=== PATIENT | female | born 1955 | race Caucasian/White ===

== ENCOUNTER 2016-08-28 05:47 | Inpatient (IN) | payer MEDICARE, OTHER ==
[2016-08-28] MEDS ORDERED: Clindamycin 600 mg/D5W 50 ml 600 MG/50 ML IVB IV ONE (06:05)
[2016-08-28] MEDS ORDERED: HYDROmorphone 1 MG INJECTION IV PRN ×2 (06:44)
[2016-08-28] MEDS ORDERED: LABETALOL 20 MG/4 ML SYRINGE IV PRN (06:44)
[2016-08-28] MEDS ORDERED: PROMETHAZINE 25 MG/ML VIAL IV PRN ×2 (06:44)
[2016-08-28] MEDS ORDERED: hydrALAZINE 20 MG/ML VIAL IV PRN (06:44)
[2016-08-28] MEDS ORDERED: ONDANSETRON HCL 4 MG/2 ML VIAL IV PRN ×2 (06:44→07:01)
[2016-08-28] MEDS ORDERED: ONDANSETRON HCL 4 MG ODT TAB PO PRN (06:44)
--- NOTE | 2016-08-28 06:45 | SC.ANESPOS ---
Post-Anesthesia Note LOC: [facility] Post-Anesthesia Assessment: Awake, Returned to Baseline, Hemodynamically Stable , Pain Control Adequate Phase I & II Recovery Complete: Yes Apparent Anesthesia Complication: No : N - Vital Signs Blood Pressure: 111/53 Pulse: 68 Resp Rate: 18 O2 Sat: 93 Temp: 97.5 F
--- NOTE | 2016-08-28 06:53 | HIM.ANES ---
Anesthesia Evaluation & Plan Diagnoses: LOWER ABDOMINAL PAIN, UNSPECIFIED (08/28/16) DISPLACED INTERTROCHANTERIC FRACTURE OF RIGHT FEMUR, INIT (08/28/16) Consented Procedure: right hip gamma nail removal with conversion to hip hemiarthroplasty and other procedures as indicated - Focused Review of Systems Cardiac History: Yes: Hx Hypertension, Hx Heart Attack (X3 in 2003, 2004, and 2010), Hx Cardiac Catheterization (08/15/2016 100% OCCLUSION RCA WITH COLLATERAL CIRCULATION. NORMAL LV), Hx Angioplasty, Hx Coronary Stent (3 stents RCA 2003, 1 STENT 2004, 1 STENT 2010), Hx Cardiac Disorders, Hx Abnormal Cholesterol/Hyperlipidemia HEENT: Yes: Hx Dysphagia (from prior admission), Hx Vision Problem ( PRESCRIPTION GLASSES), Other HEENT Problems Respiratory: Yes: Hx Asthma, Hx Emphysema, Hx Chronic Obstructive Pulmonary Disease (COPD), Hx Sleep Apnea, Hx Snoring, Hx CPAP Dependent, Hx Pneumonia (2015 REQUIRED BIPAP INPATIENT) Gastrointestinal: Yes: Hx Gastroesophageal Reflux Disease (Controlled), Hx Pancreatitis (2007), Hx Hiatal Hernia, Hx Gastrointestinal Disorders, Hx Colonoscopy Neurological/Musculoskeletal: Yes: Hx Migraine, Hx Back Pain, Hx Peripheral Neuropathy, Hx Neurological Disorders Other Neurological Problems: 2011 HEAD MRI SHOWED MILD CHRONIC MICROVASCULAR ISCHEMIC CHANGE Psychological: Yes Hx Anxiety, Yes Hx Depression, Yes Hx Mental/Emotional Disorders HX Other Psyco/Soc Problems: DEPRESSION, ANXIETY Endocrine: Yes: Hx Insulin Dependent Diabetes (UNCONTROLLED/FS 239 this AM), Hx Hypothyroidism Blood/Autoimmune: No: Hx AIDS, Hx Hepatitis (type) Smoking Status: Heavy tobacco smoker (5 or more cigarettes/day or daily pipe/ cigar) Past Social History: Denies: Substance Use Disorder Hx Stress Test (date): Yes (07/2016 ABNORMAL REQUIRED HEART CATHERIZATION) Hx Chest Xray (date): Yes (08/15/2016 CHRONIC INTERSTITUAL COARSENING) Surgical History: Yes: Cholecystectomy (1980), Back (LUMBAR LAMINECTIOMY), Hip, Other (R+L Carpal tunnel. ulnar nerve bilat. Laminectomy 1994 L4-5.) Other Surgical History: bare-metal stent to the LAD in 2004, drug-eluting to RCA 2003 BTL 1980 CARPEL TUNNEL RELEASE - Focused Physical Exam NPO since: 08/27/161999 Mallampati: Class IV Thyromental Distance: Greater than 3 Neck: Full Range of Motion Dental: Removable Dental Work Cardiovascular/Chest: Normal Respiratory: Decreased breath sounds Any problems with anesthesia, including nausea and vomiting?: No Any relatives with a history of Malignant Hyperthermia?: No Beta Filipe given (if appropriate): Yes Does the patient have a history of Motion Sickness-: No Other: Problem List Problem Status Onset Accidental fall Acute Acute respiratory failure with hypoxia Acute COPD exacerbation Acute Chest pain Acute Fracture, intertrochanteric, right femur Acute Hypoxia Acute Pneumonia Acute Type 2 diabetes mellitus with hyperglycemia Acute UTI (urinary tract infection) Acute Adolescent depression Chronic CAD in [place] artery Chronic DM2 (diabetes mellitus, type 2) Chronic Dyslipidemia Chronic GERD (gastroesophageal reflux disease) Chronic Hypertensive arteriosclerotic cardiovascular disease Chronic Hypothyroid Chronic RANDALL (obstructive sleep apnea) Chronic Allergies Allergy/AdvReac Type Severity Reaction Status Date / Time fentanyl [From Duragesic] Allergy Severe Confusion Verified 08/28/16 06:20 amlodipine besylate Allergy Irregular Verified 08/28/16 06:20 [From Norvasc] Heartbeat amoxicillin [Amoxicillin] Allergy Rash-Genera Verified 08/28/16 06:20 lized ampicillin Allergy Rash-Genera Verified 08/28/16 06:20 lized pioglitazone HCl [From Actos] Allergy Unknown Verified 08/28/16 06:20 Sulfa (Sulfonamide Allergy Anaphylaxis Verified 08/28/16 06:20 Antibiotics) * PICKLES Allergy Anaphylaxis Uncoded 08/27/16 08:33 * Home Medications Medication Instructions Recorded Last Taken Type Clonazepam 1 mg PO BID 12/16/12 08/27/16 21:00 History Fenofibrate 160 mg PO DAILY 12/16/12 08/27/16 21:00 History Folic Acid 1 mg PO DAILY 12/16/12 08/27/16 21:00 History Levothyroxine Sodium [Unithroid] 200 mcg PO DAILY 12/16/12 08/28/16 04:00 History Metoprolol Succinate (XL) [Toprol 100 mg PO DAILY 12/16/12 08/28/16 04:00 History Xl] Spironolact/Hydrochlorothiazid 1.5 tab PO DAILY 12/16/12 08/28/16 04:00 History [Spironolactone-Hctz 25-25 Tab] Omeprazole [Prilosec] 40 mg PO BID 12/17/12 08/28/16 04:00 History BuPROPion (Daily formulation) 300 mg PO DAILY 07/24/13 08/27/16 21:00 History [Wellbutrin Xl] Nitroglycerin [Nitrostat] 0.4 mg SL .[id number] PRN 09/28/13 09/28/13 13:00 History Aripiprazole [Abilify] 5 mg PO HS 01/11/16 08/27/16 21:00 History Furosemide [Lasix] 40 mg PO BID 01/11/16 08/28/16 04:00 History Atorvastatin Calcium [Lipitor] 80 mg PO BID 04/30/16 08/28/16 04:00 History Duloxetine [Cymbalta] 60 mg PO BID 04/30/16 08/27/16 21:00 History Ergocalciferol (Vitamin D2) 1.25 mg PO Sa@0900 04/30/16 08/25/16 History [Vitamin D2 (ergocalciferol)] Metformin HCl [Metformin HCl ER] 1,000 mg PO BID 04/30/16 08/28/16 04:00 History Tizanidine HCl 4 mg PO TID PRN 04/30/16 08/27/16 21:00 History Albuterol Sulfate [Proair Hfa] 2 puff INH Q4-6H PRN 08/27/16 1 Month Ago History Albuterol/Ipratropium Neb [Duoneb] 3 ml NEB Q6H 08/27/16 1 Month Ago History Aspirin [Aspirin EC] 81 mg PO DAILY 08/27/16 08/27/16 21:00 History Exenatide Microspheres [Bydureon 2 mg SQ WEEKLY 08/27/16 08/25/16 History Pen] Insulin Glargine,Hum.rec.anlog 80 unit SQ BID 08/27/16 08/27/16 21:00 History [Lantus] Oxybutynin Chloride [Ditropan Xl] 5 mg PO BID 08/27/16 08/27/16 04:00 History Prasugrel HCl [Effient] 10 mg PO DAILY 08/27/16 1 Week Ago History Pregabalin [Lyrica] 225 mg PO BID 08/27/16 08/28/16 04:00 History Height and Weight Patient's height 5 ft 4.5 in Patient's weight 217 lb BMI 37.3 Vital Signs Temperature 97.5 F 08/28/16 06:45 Pulse Rate 68 08/28/16 06:45 Respiratory Rate 18 08/28/16 06:45 Blood Pressure 111/53 L 08/28/16 06:45 Pulse Oxygen Saturation 93 08/28/16 06:45 - Anesthetic Plan Anesthesia Type: General ASA Class: 4 -: I have examined this patient and reviewed the medical record. The patient has been assessed prior to anesthesia. Risks and benefits of anesthesia and anesthetic technique options have been discussed and all questions answered. The patient accepts the risk and desires me to proceed with the planned anesthetic.
[2016-08-28] MEDS ORDERED: NITROGLYCERINE 0.4 MG TAB SL PRN (06:56)
[2016-08-28] MEDS ORDERED: ALBUTEROL 6.7 GM MDI INH PRN (06:56)
[2016-08-28] MEDS ORDERED: Non-Formulary Medication ITEM (Tizanidine Hcl [Tizanidine Hcl] 4 MG) PO PRN (06:56)
[2016-08-28] MEDS ORDERED: Aluminum;Magnesium;Simethicone 30 ML UDC PO PRN (07:01)
[2016-08-28] MEDS ORDERED: MAGNESIUM HYDROXIDE 30 ML BOTTLE PO PRN (07:01)
[2016-08-28] MEDS ORDERED: DIPHENHYDRAMINE 50 MG/ML VIAL IV PRN (07:01)
[2016-08-28] MEDS ORDERED: BISACODYL 10 MG SUPP PR PRN (07:01)
--- NOTE | 2016-08-28 07:07 | HIMOPRPT ---
PREOPERATIVE DIAGNOSIS: Failed right proximal femur fracture closed reduction with cephalomedullary nailing POSTOPERATIVE DIAGNOSIS: Same. PROCEDURE: 1-removal of deep implants right femur 2-right hip hemiarthroplasty FINDINGS: Evidence of superior migration of the lag screw involving the gamma nail. Nonunited fracture extending into the medial calcar of the proximal femur with instability. SPECIMENS REMOVED: Right femoral head sent for pathology. ESTIMATED BLOOD LOSS: 250 cc's ANESTHESIA: General anesthesia. COMPLICATIONS: None. SURGEON: Santiago Cagle M.D. CO-SURGEON: Kimani Hay MD Co-surgeon was necessary in the critical steps and decision making of this case and was present throughout entirety of the behavioral health case manager: SUKUMAR Childs IMPLANTS: [employer] modular hip system with metallic 127mm x 15mm stem and 21 mm +30 poximal portion; metallic -4mm unitrax neck sleeve; 48mm unitrax head. SIGNIFICANT HISTORY, INDICATIONS, AND CONSENT: Denise is a 60-year-old poorly controlled diabetic female smoker who is now several months status post closed reduction cephalomedullary nailing of a right proximal femur fracture. Patient went on to have progressive right hip pain and with consecutive radiographs appeared to have failed to heal her proximal femur fracture. CT scan revealed superior migration of the lag screw of her cephalomedullary device consistent with early cutout. Right groin pain also increase and it was decided after careful evaluation that she would benefit from removal of deep implants and conversion to a calcar replacing hip hemiarthroplasty. Patient wished to proceed with surgical intervention for improved pain and function. Consent was obtained. OPERATION IN DETAIL: The patient was seen in the preop holding area. The right hip was signed. Consent was reviewed. Questions were answered. H and P updated. SCDs placed on the left lower extremity. The patient was taken to the operating room, placed in the supine position on the operating table. Anesthesia placed monitoring, performed general endotracheal intubation. The patient was then carefully positioned in the lateral decubitus position being careful to pad bony prominences. Once the patient was carefully positioned laterally, we sterilely prepped and draped the right lower extremity in the usual orthopedic fashion. A time-out was performed. The patient received prophylactic antibiotics and consensus reached amongst the participants in the OR suite. Our prior skin incisions were then incised and our distal interlock screw removed in standard fashion. Next, our incision was delineated and a Richard approach was performed posteriorly in line with the femur distally and curving posteriorly toward the PSIS at the greater trochanter. Sharp dissection was made through skin. Careful dissection down to tensor fascia was made. Fascia was incised distally in line with the femur and proximally blunt dissection to the gluteus. Next, a Charnley retractor was placed in standard fashion retracting with careful attention to the sciatic nerve, which was palpated and protected. Bursa was removed using Bovie and sweet pickled fruit maker, with short external rotators identified. Next a, a window was made in the gluteus to identify the proximal portion of our cephalomedullary nail. This was identified and our removal device was screwed into the nail itself. Our lag screws identified and removed. Set screw was also removed prior to inserting our removal device. The nail was then backslapped out of the femur shaft. A #2 FiberWire was tagged in the piriformis and capsule, two of these were placed in the short external rotators , and subperiosteal elevation of the short external rotators was performed. Capsulotomy was performed. Our hip was dislocated and a femoral neck cut was made approximately 1 cm proximal to the lesser trochanter. We identified fracture extension into the medial calcar approximately a cm half distal to the lesser trochanter. It was at this time we decided to proceed with a calcar bypassing distal fixation type stem. Femoral head was sent for pathology. After the femoral head was removed, this was measured and sized. We found that the most appropriate size was 48 mm, with good suction and seal. We then placed a femoral retractor and began preparation of the femoral canal with box toe buffer, then anterior reamer, and then gradual progressive reaming up to a size 14 mm press-fit stem distally. We next reamed our proximal femur for insertion of the proximal cone extension piece which was found to be at approximately 30 mm to the level of the center portion of the hip. After this was reamed and radiographically confirmed to be in acceptable position with excellent press fit distally we proceeded with trialing the femoral head. Examination with a - 4 offset neck and 40 a mm head revealed good stability and appropriate length. Hip was stable at 90 degrees of flexion and 30 degrees of adduction, the patient was able to be internally rotated nearly 45 degrees before any subluxation occurred. No impingement posteriorly and again church of 0leg lengths. The final components were placed after thorough irrigation. The hip was reduced and stability once again confirmed. The cone and the stem portion were fixed on the back table prior to insertion. We again trialed our femoral head and radiographically confirmed acceptable placement. The final 40 mm head was then placed in standard fashion. The incision site was thoroughly irrigated with half Betadine and half sterile saline. The capsulotomy repaired with #1 Vicryl. We then used #2 FiberWires to repair the short external rotators through bone tunnels on the posterior aspect of the greater trochanter. Vancomycin powder was placed below the ITB band. #1 Vicryl was used to perform a watertight closure of the IT band, #2-0 Vicryl for subcutaneous closure, and olivia for skin. Sterile soft tissue dressing was placed. The patient was placed in abduction pillow, aroused by anesthesia, and taken to the postanesthesia care unit in stable condition. PLAN: The patient will be admitted to the Medicine Service when okay with anesthesia. The patient will be weightbearing as tolerated lower extremity with physical therapy. We recommended posterior hip precautions, abduction pillow while sleeping, limited opioids, Aspirin to begin tonight for 35 days postoperative course, 24 hours perioperative antibiotics, nutrition optimization.
[2016-08-28] MEDS ORDERED: TIZANIDINE 2 MG TAB PO PRN (07:31)
[2016-08-28] MEDS ORDERED: GLARGINE INSULIN (LANTUS) 100 UNITS/ML PEN SQ SCH (08:00)
[2016-08-28] MEDS ORDERED: NALOXONE 0.4 MG/ML AMPULE IV SCH (08:00)
[2016-08-28] MEDS ORDERED: Pharmacy Change IV Fluid Rate to KVO XX SCH (08:00)
[2016-08-28] MEDS ORDERED: Non-Formulary Medication ITEM (Fenofibrate [Fenofibrate] 160 MG) PO SCH (09:00)
[2016-08-28] MEDS ORDERED: INSULIN GLARGINE HUM REC ANLOG 80 UNIT SQ SCH (09:00)
[2016-08-28] MEDS ORDERED: PREGABALIN 225 MG PO SCH (09:00)
[2016-08-28] MEDS ORDERED: [UNRECOGNIZED DRUG - OTHER] PO SCH (09:00)
[2016-08-28] MEDS ORDERED: OXYBUTYNIN CHLORIDE 5 MG PO SCH (09:00)
[2016-08-28] MEDS ORDERED: METFORMIN HCL 1000 MG PO SCH (09:00)
[2016-08-28] MEDS ORDERED: Non-Formulary Medication ITEM (Omeprazole 40 MG) PO SCH (09:00)
[2016-08-28] MEDS ORDERED: BUPIVACAINE 0.25%-EPINEPHRINE 1:200,000 30 ML ONE (09:09)
[2016-08-28] MEDS: VANCOMYCIN 1,000 MG VIAL INSTILL ONE ×2 (09:55→14:34)
[2016-08-28] MEDS ORDERED: ROCURONIUM 50 MG/5 ML VIAL IV ONE (10:00)
[2016-08-28] MEDS ORDERED: LIDOCAINE 100 MG PFS IV ONE (10:00)
[2016-08-28] MEDS ORDERED: ONDANSETRON HCL 4 MG/2 ML VIAL IV ONE (10:00)
[2016-08-28] MEDS ORDERED: PROPOFOL 200 MG/20 ML VIAL IV ONE (10:00)
[2016-08-28] MEDS ORDERED: DEXAMETHASONE 4 MG/ML VIAL IV ONE (10:00)
[2016-08-28] MEDS ORDERED: SUCCINYLCHOLINE 20 MG/1 ML INJ 10 ML MDV IV ONE (10:00)
[2016-08-28] MEDS ORDERED: MIDAZOLAM 2 MG/2 ML VIAL IV ONE (10:00)
[2016-08-28] MEDS ORDERED: HYDROmorphone 2 MG/ML VIAL IM ONE (10:00)
[2016-08-28] MEDS ORDERED: KETOROLAC TROMETH 30 MG/ML VIAL IM ONE (10:00)
[2016-08-28] MEDS ORDERED: NS 1,000 ML IV ONE (10:49)
--- NOTE | 2016-08-28 10:57 | DIRPT ---
CLINICAL DATA: Right hip replacement. EXAM: RIGHT HIP (WITH PELVIS) 1 VIEW PORTABLE COMPARISON: 05/01/2016 . FINDINGS: Removal of intra medullary alcon with title right hip replacement with good anatomic alignment on AP view. Hardware intact. IMPRESSION: Total right hip replacement with good anatomic alignment. Hardware intact. Electronically Signed By: Estiven Farrell On: 08/28/2016 10:55
[2016-08-28] MEDS ORDERED: Vaccine Screening Complete SCH (13:00)
[2016-08-28] MEDS: Albuterol/Ipratropium Neb 3 ML NEB NEB SCH ×3 (13:26→19:20)
--- NOTE | 2016-08-28 13:29 | HIMOPRPT ---
DATE OF PROCEDURE: 08/28/16 PREOPERATIVE DIAGNOSIS: Failed right proximal femur fracture status post closed reduction with cephalomedullary nailing. POSTOPERATIVE DIAGNOSIS: Same. OPERATION: 1. Right hip hemiarthroplasty. 2. Removal deep implants right femur SURGEON: Santiago Cagle MD Co-Surgeon: Kimani Hay MD co-surgeon was necessary in the critical steps and decision making of this case and the co surgeon was present throughout the case. PRESALES SENIOR SPECIALIST: SUKUMAR Childs ANESTHESIA: General endotracheal anesthesia DRAINS: None. COMPLICATIONS: None. IMPLANTS: [place] [employer] modular hip system with metallic 127 mm x 15 mm stem and 21 mm +30 mm proximal portion; metallic-4 mm Unitrax neck sleeve; 48 mm Unitrax head DISPOSITION: Stable to recovery. ESTIMATED BLOOD LOSS: 250 cc. BRIEF HISTORY: The patient is a 60 years old female who is several months status post closed reduction and cephalomedullary nailing of right proximal femur fracture. Patient went on to have progressive right hip pain with proximal migration of the femoral leg screw. CT scan confirmed these findings. Patient was scheduled for revision fixation with removal of a nail and conversion to right hip hemiarthroplasty. Patient understood that the risks involved in surgery include but are not limited to infection, damage to the nerve, blood vessel, recurrent dislocation, need for further surgery, continued pain, implant failure , DVT, pulmonary embolism, stroke and even . Patient was also explained the requirement of adherence to postoperative protocol. DEJA KIRBY showed understanding and willingness to proceed. Patient volunteered an informed consent. PROCEDURE IN DETAIL: DEJA KIRBY was identified in the preop area. The surgical side was confirmed with the patient and marked on the skin. Patient was then returned back into the operating room. Patient was placed supine on the operating table. General endotracheal anesthesia was administered. Proper timeout was performed confirming the identity of the patient as well as the site of the surgery. 2 g of IV Ancef were given preoperatively within 30 min. of the surgical incision. All the bony prominences were adequately padded. The surgical area was sealed off with plastic drapes. The surgical area was scrubbed with alcohol and Betadine and finally prepped with ChloraPrep. Posterolateral approach was used. Patient was positioned in the lateral position with position maintained with hip positioners. Using the prior skin incision the distal locking screw was removed. We then proceeded with the posterolateral approach. Skin and the fascia was incised. The gluteus vanesa was split longitudinally while the tensor fascia lisa was incised longitudinally in line with the femur. Charnley retractor was then placed. The femoral lag screw was removed. This was followed by uneventful removal of the gamma nail. Short external rotators were tagged with 2. FiberWire stitches. The hip was dislocated. There was nonunion at the fracture site. Proper cut neck osteotomy was performed. Femoral head was sent for pathology. The femoral head was measured at 48 mm in size. We trialed with 48 mm head and found adequate suction with that. We then proceeded with the broaching of the proximal femur. Progressive reaming was done up to size 14 mm press fit. We then reamed our proximal femur for insertion of the proximal colon extension piece which was found to be approximately 30 mm to the level of the center portion of the hip. After this was reamed and radiologically confirmed to be in acceptable position with excellent press fit distally we proceeded with trialing the femoral head. Examination with a-4 offset neck and 48 mm head revealed good stability and appropriate length for both lower extremities. Hip was stable at 90 of flexion and 30 of adduction. No impingement posteriorly was noted. Final components were placed after thorough irrigation. Hip was reduced and stability was again reassessed. Short external rotators were reattached using 2. FiberWire. Vancomycin border was placed in the joint. The wound was copiously irrigated with normal saline as well as Betadine solution. The tensor fascia lisa was also repaired. The remaining part of the skin was closed in layers. DISPOSITION: Patient would be admitted to the orthopedic service. Patient will be weightbearing as tolerated on bilateral lower extremities. Patient will be started on aspirin 325 mg twice daily for DVT prophylaxis. Patient will have mechanical prophylaxis with intermittent compression devices while in bed.
[2016-08-28] MEDS: FUROSEMIDE 40 MG TAB PO SCH ×2 (13:45→16:33)
[2016-08-28] MEDS: SPIRONOLACTONE 25 MG TAB PO SCH (13:46)
[2016-08-28] MEDS: PREGABALIN 100 MG CAP PO SCH ×2 (13:46→21:10)
[2016-08-28] MEDS: HYDROCHLOROTHIAZIDE 25 MG TAB PO SCH (13:46)
[2016-08-28] MEDS: PREGABALIN 25 MG CAP PO SCH ×2 (13:47→21:10)
[2016-08-28] MEDS: METOPROLOL (TOPROL-XL) 100 MG TAB PO SCH (13:47)
[2016-08-28] MEDS: LEVOTHYROXINE 200 MCG (0.2 MG) TAB PO SCH (13:47)
[2016-08-28] MEDS: ATORVASTATIN 80 MG TAB PO SCH ×2 (13:49→21:09)
[2016-08-28] MEDS: Clindamycin 600 mg/D5W 50 ml 600 MG/50 ML IVB IV SCH ×2 (13:52→21:09)
[2016-08-28] MEDS: Aspirin (Orange Enteric Coated) 325 mg tab PO SCH ×2 (14:06→16:34)
[2016-08-28] MEDS: TOLTERODINE 4 MG LA CAP PO SCH (14:08)
[2016-08-28] MEDS: DULOXETINE 60 MG CAPSULE PO SCH ×2 (14:08→21:09)
[2016-08-28] MEDS: FENOFIBRATE 145 MG TAB PO SCH (14:10)
[2016-08-28] MEDS: BuPROPion 150 MG XL TAB PO SCH (14:10)
[2016-08-28] MEDS: FOLIC ACID 1 MG TAB PO SCH (14:11)
[2016-08-28] MEDS: VITAMINS, MULTIPLE CAP PO SCH (14:11)
[2016-08-28] MEDS: CALCIUM CARBONATE + VITAMIN D 500 MG TAB PO SCH ×2 (14:11→16:35)
[2016-08-28] MEDS: ACETAMINOPHEN 325 MG/TAB TABLET PO SCH ×3 (14:22→23:12)
[2016-08-28] MEDS: GLARGINE INSULIN (LANTUS) 100 UNITS/ML PEN SQ SCH ×2 (14:25→21:11)
[2016-08-28] MEDS: PRASUGREL HCL 10 MG TABLET PO SCH (14:40)
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
[2016-08-28] MEDS ORDERED: GLUCOSE (ORAL GEL) 15 GM TUBE PO PRN (15:21)
[2016-08-28] MEDS ORDERED: GLUCAGON 1 MG VIAL SQ PRN (15:21)
[2016-08-28] MEDS ORDERED: DEXTROSE 25 GM/50 ML PFS IV PRN (15:21)
[2016-08-28] MEDS: MetFORMIN, EXT REL 500 MG TAB PO SCH (16:34)
[2016-08-28] MEDS: PANTOPRAZOLE 40 MG TAB PO SCH (16:35)
[2016-08-28] MEDS: SODIUM CHLORIDE 0.9% 3 ML FLUSH FLUSH SCH (16:35)
[2016-08-28] MEDS: REGULAR INSULIN 100 UNITS/ML - 3 ML VIAL SQ SCH ×2 (16:36→21:14)
--- NOTE | 2016-08-28 17:14 | PCM.ORTHBL ---
- Subjective Hospital Day #: 1 Post Op Day: 0 (s/p R hip conversion to hemiarthroplasty) Daily Assessment - Patient: Reports: No new complaints, Awake Alert Oriented x4 , Tolerating liquids well, Afebrile, Ambulating with Physical Therapist - Objective / Physical Exam Vital Signs: Temperature: 97.5 F (08/28/16 15:06) HR: 76 (08/28/16 15:30)RR: 20 (08/28/16 15: 30) BP: 120/58 (08/28/16 15:30)Pulse Ox: 94 (08/28/16 15:30) General: Alert, Oriented x3, Cooperative, No acute distress, Obese Musculoskeletal / Extremities: 2 plus Dorsalis Pedis Pulse, Dressing Clean/Dry/ Intact, Swelling Neurological: Positive Sensation First Dorsal Web Space, Sensation to light touch intact, Extensor Hallicus Longus Intact, Flexor Hallicus Longus Intact, Dorsiflexion Intact, Plantarflexion Intact Skin: Warm,Dry and Intact Laboratory/Diagnostics Reviewed: Laboratory Results - last 24 hr 08/28/16 08/28/16 08/28/16 06:17 10:32 15:45 POC Capillary Glucose 239 H 241 H Hemoglobin A1c 10.5 H 08/28/16 16:08 POC Capillary Glucose 276 H Hemoglobin A1c - Assessment and Plan (1) Fracture, intertrochanteric, right femur Acute S72.141A - DISPLACED INTERTROCHANTERIC FRACTURE OF RIGHT FEMUR, INIT Present on Admission: Yes subsequent encounter with nonunion Comment/Plan: POD #0 s/p R hip proximal femur CMN converted to hemiarthroplasty secondary to nonunion. PT/OT WBAT with AD RLE. DVT ppx as ordered. Dispo planning. Strict glucose control. Medicine consulted.
[2016-08-28] MEDS ORDERED: PANTOPRAZOLE 40 MG TAB PO SCH (18:00)
[2016-08-28] MEDS ORDERED: ARIPIPRAZOLE 5 MG PO SCH (21:00)
[2016-08-28] MEDS: ARIPIPRAZOLE 10 MG TAB PO SCH (21:08)
[2016-08-28] MEDS: DOCUSATE-SENNA CONCENTRATE TAB PO SCH (21:11)
[2016-08-29] MEDS: Albuterol/Ipratropium Neb 3 ML NEB NEB SCH ×4 (02:32→19:17)
[2016-08-29] MEDS: OXYCODONE HCL 5 MG TABLET PO PRN ×2 (04:24→09:56)
[2016-08-29] MEDS: Clindamycin 600 mg/D5W 50 ml 600 MG/50 ML IVB IV SCH (04:24)
[2016-08-29] MEDS: MetFORMIN, EXT REL 500 MG TAB PO SCH ×2 (05:46→17:54)
[2016-08-29] MEDS: PANTOPRAZOLE 40 MG TAB PO SCH ×2 (05:46→17:53)
[2016-08-29] MEDS: SODIUM CHLORIDE 0.9% 3 ML FLUSH FLUSH SCH ×2 (05:46→17:54)
[2016-08-29] MEDS: ACETAMINOPHEN 325 MG/TAB TABLET PO SCH ×4 (05:46→23:04)
[2016-08-29] MEDS: REGULAR INSULIN 100 UNITS/ML - 3 ML VIAL SQ SCH ×4 (05:47→20:50)
--- NOTE | 2016-08-29 06:38 | PCM.ORTHBL ---
- Subjective Hospital Day #: 2 Post Op Day: 1 (s/p R hip conversion to hemiarthroplasty) Daily Assessment - Patient: Reports: No new complaints, Awake Alert Oriented x4 , Pain is less, Tolerating Regular Diet, Afebrile, Ambulating with Physical Therapist - Objective / Physical Exam Vital Signs: Temperature: 99.5 F (08/29/16 05:56) HR: 82 (08/29/16 05:56)RR: 18 (08/29/16 05: 56) BP: 109/51 (08/29/16 05:56)Pulse Ox: 94 (08/29/16 05:56) General: Alert, Oriented x3, Cooperative, No acute distress, Obese Musculoskeletal / Extremities: 2 plus Dorsalis Pedis Pulse, Dressing Clean/Dry/ Intact, Tenderness Neurological: Positive Sensation First Dorsal Web Space, Sensation to light touch intact, Extensor Hallicus Longus Intact, Flexor Hallicus Longus Intact, Dorsiflexion Intact, Plantarflexion Intact Skin: Warm,Dry and Intact Laboratory/Diagnostics Reviewed: Laboratory Results - last 24 hr 08/28/16 08/28/16 08/28/16 10:32 15:45 16:08 POC Capillary Glucose 241 H 276 H Hemoglobin A1c 10.5 H 08/28/16 08/29/16 21:13 05:43 POC Capillary Glucose 219 H 100 H Hemoglobin A1c - Assessment and Plan (1) Fracture, intertrochanteric, right femur Acute S72.141A - DISPLACED INTERTROCHANTERIC FRACTURE OF RIGHT FEMUR, INIT Present on Admission: Yes subsequent encounter with nonunion Comment/Plan: POD #1 s/p conversion CMN to right hip hemiarthroplasty. Continue PT/OT today for WBAT with AD RLE. DVT ppx as ordered. Glucose control. Dispo planning.
[2016-08-29 07:28] LABS: MPV 11.8 fL (7.4-10.4)
[2016-08-29 07:46] LABS: BLOOD UREA NITROGEN 23 MG/DL (7-17); CALCIUM 8.7 MG/DL (8.4-10.2); CALCULATED OSMOLALITY 270 MOs/Kg (270-290); CHLORIDE 97 mEq/L (98-107); GLUCOSE 92 MG/DL (70-99); SODIUM LEVEL 138 mEq/L (137-146)
[2016-08-29] MEDS: SPIRONOLACTONE 25 MG TAB PO SCH (08:10)
[2016-08-29] MEDS: FUROSEMIDE 40 MG TAB PO SCH ×2 (08:10→14:30)
[2016-08-29] MEDS: Aspirin (Orange Enteric Coated) 325 mg tab PO SCH ×2 (08:11→17:53)
[2016-08-29] MEDS: DULOXETINE 60 MG CAPSULE PO SCH ×2 (08:11→20:50)
[2016-08-29] MEDS: HYDROCHLOROTHIAZIDE 25 MG TAB PO SCH (08:12)
[2016-08-29] MEDS: PRASUGREL HCL 10 MG TABLET PO SCH (08:12)
[2016-08-29] MEDS: TOLTERODINE 4 MG LA CAP PO SCH (08:13)
[2016-08-29] MEDS: ATORVASTATIN 80 MG TAB PO SCH ×2 (08:15→20:51)
[2016-08-29] MEDS: LEVOTHYROXINE 200 MCG (0.2 MG) TAB PO SCH (08:15)
[2016-08-29] MEDS: METOPROLOL (TOPROL-XL) 100 MG TAB PO SCH (08:15)
[2016-08-29] MEDS: BuPROPion 150 MG XL TAB PO SCH (08:16)
[2016-08-29] MEDS: FENOFIBRATE 145 MG TAB PO SCH (08:16)
[2016-08-29] MEDS: PREGABALIN 100 MG CAP PO SCH ×2 (08:20→20:49)
[2016-08-29] MEDS: PREGABALIN 25 MG CAP PO SCH ×2 (08:20→20:49)
[2016-08-29] MEDS: GLARGINE INSULIN (LANTUS) 100 UNITS/ML PEN SQ SCH ×2 (08:21→20:50)
[2016-08-29] MEDS: CALCIUM CARBONATE + VITAMIN D 500 MG TAB PO SCH ×2 (11:19→17:53)
[2016-08-29] MEDS: POTASSIUM CHLORIDE 20 MEQ/15 ML ORAL SOLN PO SCH ×3 (11:19→14:30)
[2016-08-29] MEDS: FOLIC ACID 1 MG TAB PO SCH (11:21)
[2016-08-29] MEDS: VITAMINS, MULTIPLE CAP PO SCH (11:21)
--- NOTE | 2016-08-29 12:34 | GENMEDPROG ---
Chief Complaint: Status post right hip hemiarthroplasty Subjective Note: Doing well, no acute complaints. Had work with physical therapy this morning, sitting up in a chair this morning. Notes Reviewed: Yes Events from last night noted and discussed with Clinical Staff Current Medication List: Reviewed DVT Prophylaxis: Yes - Physical Examination Vital Signs and I&O: Last Vital Signs Temp 99 F 08/29/16 10:11 Pulse 89 08/29/16 10:11 Resp 18 08/29/16 10:11 BP 114/53 L 08/29/16 10:11 Pulse Ox 92 08/29/16 10:14 Oxygen Pulse Oxygen Saturation [Post 86 Treatment] Pulse Oxygen Saturation 92 O2 Device Nasal Cannula Oxygen Flow Rate 3 Fraction of Inspired Oxygen ( 100 FIO2) Intake & Output 08/27/16 08/28/16 08/29/16 08/30/16 06:59 06:59 06:59 06:59 Intake Total 810 240 Output Total 850 Balance -40 240 Patient's weight 98.43 kg 102.739 kg General: Alert, Oriented x3, Cooperative, No acute distress, Obese Neck: Normal Trachea alignment, Normal inspection Respiratory: Normal - CTA (Clear to auscultation blaterally,no wheezing,rales, rhonchi.No use of accessory muscles) Cardiovascular: Regular rate, No Gallops,Rubs/Murmurs Skin: Warm,Dry and Intact Lab/DI/Studies Reviewed: Laboratory Tests 08/29/16 08/29/16 06:41 06:41 WBC 12.2 H Hgb 10.4 L Hct 31.1 L Potassium 3.1 L BUN 23 H Creatinine 0.70 - Assessment (1) Fracture, intertrochanteric, right femur Acute S72.141A - DISPLACED INTERTROCHANTERIC FRACTURE OF RIGHT FEMUR, INIT Qualifiers: Encounter type: subsequent encounter Fracture healing: with nonunion Comment/Plan: Patient was readmitted to the hospital for revision of her prior right hip back in April of 2016. Due to complications, she underwent right irene arthroplasty today. For her previous hip surgery, Effient had been held prior to surgery, but resumed afterwards. As such, we will resume her Effient today. (2) COPD (chronic obstructive pulmonary disease) Acute J44.9 - CHRONIC OBSTRUCTIVE PULMONARY DISEASE, UNSPECIFIED Comment/ Plan: No evidence of exacerbation. Continue home medication. (3) CAD in [place] artery Chronic I25.10 - ATHSCL HEART DISEASE OF [place] CORONARY ARTERY W/O ANG PCTRS Comment/Plan: Patient has had 4 stents placed and 3 MIs with most recent in 2010. Remains on Effient. Plan: Underwent surgery today without complication. Continue her usual cardiac medications, including her beta-madison and Effient. (4) DM2 (diabetes mellitus, type 2) Chronic E11.9 - TYPE 2 DIABETES MELLITUS WITHOUT COMPLICATIONS Comment/Plan : Continue home medications. Accu-Cheks and sliding scale insulin. (5) Dyslipidemia Chronic E78.5 - HYPERLIPIDEMIA, UNSPECIFIED Comment/Plan: Continue statin (6) GERD (gastroesophageal reflux disease) Chronic K21.9 - GASTRO-ESOPHAGEAL REFLUX DISEASE WITHOUT ESOPHAGITIS Comment /Plan: continue ppi (7) Hypertensive arteriosclerotic cardiovascular disease Chronic I11.9 - HYPERTENSIVE HEART DISEASE WITHOUT HEART FAILURE Comment/ Plan: Continue meds keep SBP less than 140 (8) Hypothyroid Chronic E03.9 - HYPOTHYROIDISM, UNSPECIFIED Comment/Plan: Continue home dose Synthroid. Tsh within therapeutic range back in April. (9) RANDALL (obstructive sleep apnea) Chronic G47.33 - OBSTRUCTIVE SLEEP APNEA (ADULT) (PEDIATRIC) Comment/Plan: Use home settings and home CPAP/BiPAP when sleeping. May need CPAP/BiPAP during day if patient somnolent from pain medications. - Plan Potassium repleted orally this morning. Recheck renal function and electrolytes on a daily basis.
[2016-08-29] MEDS: ARIPIPRAZOLE 10 MG TAB PO SCH (20:49)
[2016-08-29] MEDS: DOCUSATE-SENNA CONCENTRATE TAB PO SCH (20:51)
[2016-08-29] MEDS ORDERED: GLARGINE INSULIN (LANTUS) 100 UNITS/ML PEN SQ SCH (21:00)
[2016-08-30] MEDS: Albuterol/Ipratropium Neb 3 ML NEB NEB SCH ×2 (01:19→09:41)
[2016-08-30 04:58] VITALS: BP 118/54; PULSE 95; TEMP 98.7
[2016-08-30 05:00] VITALS: BMI 38.1
[2016-08-30] MEDS: MetFORMIN, EXT REL 500 MG TAB PO SCH (05:58)
[2016-08-30] MEDS: ACETAMINOPHEN 325 MG/TAB TABLET PO SCH (05:58)
[2016-08-30] MEDS: PANTOPRAZOLE 40 MG TAB PO SCH (05:58)
[2016-08-30] MEDS: SODIUM CHLORIDE 0.9% 3 ML FLUSH FLUSH SCH (05:59)
[2016-08-30] MEDS: REGULAR INSULIN 100 UNITS/ML - 3 ML VIAL SQ SCH (05:59)
[2016-08-30 07:36] LABS: MPV 10.9 fL (7.4-10.4)
--- NOTE | 2016-08-30 07:47 | PCM.ORTHBL ---
- Subjective Hospital Day #: 3 Post Op Day: 2 (s/p R hip conversion to hemiarthroplasty) Daily Assessment - Patient: Reports: Still having pain, Pain is less, Tolerating Regular Diet, Ambulating with Physical Therapist - Objective / Physical Exam Vital Signs: Temperature: 98.7 F (08/30/16 04:51) HR: 95 (08/30/16 04:51)RR: 18 (08/30/16 04: 51) BP: 118/54 (08/30/16 04:51)Pulse Ox: 95 (08/30/16 04:51) General: Alert, Oriented x3, Cooperative, No acute distress Musculoskeletal / Extremities: 2 plus Dorsalis Pedis Pulse, Dressing Clean/Dry/ Intact, Tenderness (mildly about incision) Neurological: Sensation to light touch intact (DP/SP/T/S/S), Extensor Hallicus Longus Intact, Flexor Hallicus Longus Intact, Dorsiflexion Intact, Plantarflexion Intact Skin: Warm,Dry and Intact, No breakdown Laboratory/Diagnostics Reviewed: Laboratory Results - last 24 hr 08/29/16 08/29/16 08/29/16 06:41 11:53 17:44 Sodium 138 Potassium 3.1 L Chloride 97 L Carbon Dioxide 32 Anion Gap 12 BUN 23 H Creatinine 0.70 Estimated GFR (MDRD) > 60 Glucose 92 POC Capillary Glucose 155 H 162 H Calculated Osmolality 270 Calcium 8.7 08/29/16 08/30/16 20:17 05:05 Sodium Potassium Chloride Carbon Dioxide Anion Gap BUN Creatinine Estimated GFR (MDRD) Glucose POC Capillary Glucose 186 H 97 Calculated Osmolality Calcium - Assessment and Plan (1) Fracture, intertrochanteric, right femur Acute S72.141A - DISPLACED INTERTROCHANTERIC FRACTURE OF RIGHT FEMUR, INIT Present on Admission: Yes subsequent encounter with nonunion Plan: OOB w/ PT today. Anticipate d/c home w/ HH today after PT. RTC pod #14. Continue ASA 325mg PO BID x 35 days post op.
--- NOTE | 2016-08-30 07:52 | PCM.DCS92 ---
- Final/Secondary Discharge Diagnosis (1) Fracture, intertrochanteric, right femur Acute S72.141A - DISPLACED INTERTROCHANTERIC FRACTURE OF RIGHT FEMUR, INIT Present on Admission: Yes subsequent encounter with nonunion Plan/Goal/Comment: OOB w/ PT today. Anticipate d/c home w/ HH today after PT. RTC pod #14. Continue ASA 325mg PO BID x 35 days post op. Discharge Disposition: Discharge w/ Home Health Discharge Condition: Stable Cognitive Discharge Status: Unimpaired Fuctional Discharge Status: Walker Assistance Physician Follow up/Referrals: Santiago Cagle MD [Staff Physician] - Two Weeks New Prescriptions: Aspirin (OrangeEnteric Coated) [Ecotrin] 325 mg PO BIDWM #70 tablet Docusate-Senna Concentrate [Senokot S or Cheryl Colace] 2 tab PO HS #30 tablet Diet at Discharge: As Tolerated, Regular Activity: As Tolerated, Other (see below) (posterior hip precautions.) Call Office For: Worsening Symptoms, Wound is Draining Pus, Fever over 101 F, Fever over 100.5, Wound is Painful, Wound is Red, Weight Gain (see below), Pain Uncontrolled By Meds, Other (See Details) Discontinue use of:: Alcohol, All Illegal Substances, All Types of Tobacco - DC Summary Notes Hospital Course Note:: Discharge summary on patient named DEJA KIRBY admitted to [facility] on 08/28/16 by Santiago Cagle MD. Date of discharge is []. 60-year-old female with progressive right hip pain status post closed reduction cephalomedullary nailing of right proximal femur fracture. Patient was found have evidence of cutout and it was decided to proceed with conversion to hip hemiarthroplasty. Hospital course: Patient was taken to the operating room on August 28, 2016 with deep implant removal and conversion to a hip hemiarthroplasty. Patient was transferred to the floor in stable condition and postoperatively has done quite well. Patient has been worked with physical therapy on postoperative day 2 was ready to be discharged home refusing fpc facility. Patient is tolerating a regular diet. Pain controlled on oral pain medication. Working well with physical therapy. Having normal bowel movements and able to urinate without difficulty. Operations-procedures: Right hip hemiarthroplasty-August 28, 2016 Disposition: Patient will be discharged home and will begin home health the next 2 weeks. Recommend dressing remained clean, dry, and intact. Okay to shower with dressing in place as long as incision remains dry. Weightbear as tolerated. Prescriptions provided and on chart to include oxycodone 5 mg p.o. Q 4-6 hours p.r.n. pain. Aspirin 325 mg p.o. b.i.d. times 35 days postop. Colace 100 mg p.o. b.i.d.. Return to clinic postop day 14 for staple removal and wound check. Wound Care Surgical Site: Yes Ability To Perform Care (if applicable): Yes Medical Equipment (Order must still be written on paper): Walker, Raised Toilet Seat, Shower Chair Medication Instructions: Take Stool Softener, Rx on Chart Weight Bearing: Full Abduction Pillow: YES Current Dressing: Aquacel Dressing Care: Keep Wound Clean & Dry - Consults/Home Health Outpatient Consults: Home Health - Physical Exam Vital Signs: Initial Vitals Temperature 97.5 F 08/28/16 06:00 Pulse Rate 68 08/28/16 06:00 Respiratory Rate 18 08/28/16 06:00 Blood Pressure 111/53 L 08/28/16 06:00 Pulse Oxygen Saturation 93 08/28/16 06:00
--- NOTE | 2016-08-30 08:15 | GENMEDPROG ---
Chief Complaint: R HIP FRACTURE, S/P ORIF, OSTEOPENIA, DJD, HIP PAIN, AMBULATORY DYSFUNCTION DVT Prophylaxis: Yes - Physical Examination Vital Signs and I&O: Last Vital Signs Temp 98.7 F 08/30/16 04:51 Pulse 95 08/30/16 04:51 Resp 18 08/30/16 04:51 BP 118/54 L 08/30/16 04:51 Pulse Ox 95 08/30/16 04:51 Oxygen Pulse Oxygen Saturation [Post 86 Treatment] Pulse Oxygen Saturation 95 O2 Device Nasal Cannula Oxygen Flow Rate 2 Fraction of Inspired Oxygen ( 100 FIO2) Intake & Output 08/27/16 08/28/16 08/29/16 08/30/16 23:59 23:59 23:59 23:59 Intake Total 620 1152 120 Output Total 750 700 300 Balance -130 452 -180 Patient's weight 98.52 kg 98.43 kg 102.739 kg 102.285 kg General: Alert, Oriented x3, Cooperative, No acute distress HEENT: PERRLA, EOMI, Anicteric Sclera, Mucous membr. moist/pink Neck: Full range of motion, Normal Trachea alignment, Normal inspection, No Masses palpable, No Thyromegaly palpable Lymphatics: Normal Respiratory: Normal - CTA Cardiovascular: Regular rate and rhythm, Normal S1, Normal S2 GI: Normal bowel sounds, Soft, Non tender Extremities/Musculoskeletal: Normal pulses Skin: Warm,Dry and Intact, No breakdown Neurological: Normal speech, Strength at 5/5 X4 ext, Normal tone, Cranial nerves 3-12 NL Psych/Mental Status: Normal Affect, Cooperative - Assessment (1) Fracture, intertrochanteric, right femur Acute S72.141A - DISPLACED INTERTROCHANTERIC FRACTURE OF RIGHT FEMUR, INIT Qualifiers: Encounter type: subsequent encounter Fracture healing: with nonunion Comment/Plan: Patient was readmitted to the hospital for revision of her prior right hip back in April of 2016. Due to complications, she underwent right irene arthroplasty 2 days ago. For her previous hip surgery, Effient had been held prior to surgery, but resumed afterwards. As such, we will resume her Effient today. (2) COPD (chronic obstructive pulmonary disease) Acute J44.9 - CHRONIC OBSTRUCTIVE PULMONARY DISEASE, UNSPECIFIED Qualifiers: COPD type: unspecified COPD Qualified Code(s): J44.9 - Chronic obstructive pulmonary disease, unspecified Comment/Plan: No evidence of exacerbation. Continue home medication. (3) DM2 (diabetes mellitus, type 2) Chronic E11.9 - TYPE 2 DIABETES MELLITUS WITHOUT COMPLICATIONS Qualifiers: Chronic kidney disease stage: stage 2 (mild) Comment/Plan: Continue home medications. Accu-Cheks and sliding scale insulin. (4) Dyslipidemia Chronic E78.5 - HYPERLIPIDEMIA, UNSPECIFIED Comment/Plan: Continue statin (5) Hypertensive arteriosclerotic cardiovascular disease Chronic I11.9 - HYPERTENSIVE HEART DISEASE WITHOUT HEART FAILURE Comment/ Plan: Continue meds keep SBP less than 140 (6) Hypothyroid Chronic E03.9 - HYPOTHYROIDISM, UNSPECIFIED Qualifiers: Hypothyroidism type: acquired Qualified Code(s): E03.9 - Hypothyroidism, unspecified Comment/Plan: Continue home dose Synthroid. Tsh within therapeutic range back in April. Case Care Discussed with: Patient, Consultants, Nursing Staff, Resource Management Education/Counseling Given To: Patient, Family Member Education/Counseling Given Regarding: Diagnosis, Treatment, Prognosis Total Time: 20 min Critical Care: No Couseling Time (>50% in counseling/coordination): No Code: [id number] (12+)
[2016-08-30] MEDS: Aspirin (Orange Enteric Coated) 325 mg tab PO SCH (08:57)
[2016-08-30] MEDS: FUROSEMIDE 40 MG TAB PO SCH (08:57)
[2016-08-30] MEDS: SPIRONOLACTONE 25 MG TAB PO SCH (08:58)
[2016-08-30] MEDS: DULOXETINE 60 MG CAPSULE PO SCH (08:59)
[2016-08-30] MEDS: TOLTERODINE 4 MG LA CAP PO SCH (09:00)
[2016-08-30] MEDS: GLARGINE INSULIN (LANTUS) 100 UNITS/ML PEN SQ SCH (09:00)
[2016-08-30] MEDS: PRASUGREL HCL 10 MG TABLET PO SCH (09:00)
[2016-08-30] MEDS: HYDROCHLOROTHIAZIDE 25 MG TAB PO SCH (09:00)
[2016-08-30] MEDS: ATORVASTATIN 80 MG TAB PO SCH (09:01)
[2016-08-30] MEDS: LEVOTHYROXINE 200 MCG (0.2 MG) TAB PO SCH (09:01)
[2016-08-30] MEDS: METOPROLOL (TOPROL-XL) 100 MG TAB PO SCH (09:01)
[2016-08-30] MEDS: FENOFIBRATE 145 MG TAB PO SCH (09:01)
[2016-08-30] MEDS: BuPROPion 150 MG XL TAB PO SCH (09:02)
[2016-08-30] MEDS: PREGABALIN 100 MG CAP PO SCH (09:04)
[2016-08-30] MEDS: PREGABALIN 25 MG CAP PO SCH (09:04)
== END 2016-08-30 11:33 | disposition home health service (06) | DRG 467 ==
LOC: SDC 05:47 → MPS3 12:11
PROVIDERS: ADMIT Orthopaedic Surgery; ATTEND Orthopaedic Surgery
PROC: 0SPR0JZ Removal of Synthetic Substitute from Right Hip Joint, Femoral Surface, Open Approach (ICD-10-PCS; 2016-08-28)
PROC: 0SRR01A Replacement of Right Hip Joint, Femoral Surface with Metal Synthetic Substitute, Uncemented, Open Approach (ICD-10-PCS; principal; 2016-08-28 07:15)
DX: T84.020A Dislocation of internal right hip prosthesis, initial encounter (principal); S72.141K Displaced intertrochanteric fracture of right femur, subsequent encounter for closed fracture with nonunion; E11.59 Type 2 diabetes mellitus with other circulatory complications; I11.9 Hypertensive heart disease without heart failure; F33.9 Major depressive disorder, recurrent, unspecified; Y79.2 Prosthetic and other implants, materials and accessory orthopedic devices associated with adverse incidents; Y83.8 Other surgical procedures as the cause of abnormal reaction of the patient, or of later complication, without mention of misadventure at the time of the procedure; X58.XXXD Exposure to other specified factors, subsequent encounter; F17.210 Nicotine dependence, cigarettes, uncomplicated; Z79.899 Other long term (current) drug therapy; Z79.4 Long term (current) use of insulin; Z88.8 Allergy status to other drugs, medicaments and biological substances; Z88.2 Allergy status to sulfonamides; Z88.0 Allergy status to penicillin; E03.9 Hypothyroidism, unspecified; K21.9 Gastro-esophageal reflux disease without esophagitis; G47.33 Obstructive sleep apnea (adult) (pediatric); J44.9 Chronic obstructive pulmonary disease, unspecified; E66.9 Obesity, unspecified; Z68.36 Body mass index [BMI] 36.0-36.9, adult; I25.10 Atherosclerotic heart disease of native coronary artery without angina pectoris; I25.2 Old myocardial infarction; E78.00 Pure hypercholesterolemia, unspecified; J45.909 Unspecified asthma, uncomplicated; M19.90 Unspecified osteoarthritis, unspecified site; F41.8 Other specified anxiety disorders; Z79.02 Long term (current) use of antithrombotics/antiplatelets; Z98.61 Coronary angioplasty status; E78.5 Hyperlipidemia, unspecified; I50.9 Heart failure, unspecified
CPT/HCPCS: 51798; 80048; 82962; 83036; 85027; 88305; 88311; 94640; 96372; 97161; 97165; 99406; G0237; J0330; J1100; J1170; J1885; J2001; J2250; J2405; J3370; J3490; J7620